=== PATIENT | female | born 1965 | race Caucasian/White ===

== ENCOUNTER → 2018-11-16 | Outpatient (CLI) | payer OTHER ==
--- NOTE | 2018-11-16 16:13 | CT ---
Procedure: CT LUNG SCREENING Exam Date: 11/16/2018. Ordering Provider: Fany López Clinical Indication: HISTORY OF TOBACCO USE . Current Smoker. 25 pack years. This patient meets eligibility criteria for low-dose CT lung cancer screening. Comparison: None. Technique: Using a multislice scanner, sequential helical axial imaging was obtained in the thorax, 2.5 mm thickness, 2.5 mm separation, from the level of the thoracic inlet through the lung bases without IV contrast. A low dose protocol was utilized for BMI less than 30: BMI: 15. CTDI: 1.76 mGy. 120. kVp. 45 mA. DLP 70.5 mGy centimeters. 2D sagittal and coronal reconstructed images, 6.0 mm thickness, were obtained. This exam was performed according to our departmental dose optimization program which includes use of automated exposure control, adjustment of the mA and/or kV according to patient size and/or use of iterative reconstruction technique. Nodule measurements under 10 mm are given as mean value of 3 axes diameters. FINDINGS: Lungs and large airways: Multiple dilated airspaces with diffuse centrilobular blebs and central and peripheral large bulla. Subpleural 3 mm solid nodule in the lateral right middle lobe anterior to the horizontal fissure on CT axial series 2 image 87. 3 mm calcified nodule right lower lobe on image 94. Pleural parenchymal scarring in the inferior right middle lobe and inferior lingula. Approximately 1 mm subpleural nodule in the lateral inferior lingula on image 77. Similar small subpleural nodules in the lateral base of the left lower lobe and also posterior to the superior segment of the left lower lobe Pleura and space: No effusion or pneumothorax. Mediastinum and mary: evaluation limited by low dose technique and lack of IV contrast. Lymph nodes are not enlarged. Heart and great vessels: Atherosclerotic calcification brachiocephalic vessels, aortic arch, and descending thoracic aorta. Ectasia of the ascending aorta. Coronary artery calcifications as well. Chest wall, lower neck, axillae: Evaluation also limited by same factors as described above. 1.8 x 1.2 cm low-density nodule in the superior pole of the right thyroid lobe. Upper abdomen: 3 cm cyst upper lateral pole left kidney. Atherosclerotic calcifications in the abdominal aorta. Possible cyst upper pole right kidney. Minimal peritoneal fat. Osseous structures: Evaluation limited by low dose MIP technique. Unremarkable. IMPRESSION: 1. Moderate emphysematous changes. Multiple bilateral small solid soft tissue nodules 3 mm or less in diameter. Calcified granulomas also noted [facility] Best Practice guidelines: Please see below for Lung RADS category and FOLLOW-UP.* *Lung RADS category CATEGORY 2S- Nodules with a very low likelihood (less than 1%) of becoming a clinically active cancer due to size or lack of growth. Nodules: Solid or part solid nodule(s) less than 6mm, new solid nodule less than 4mm. Ground glass nodule(s) less than 20mm or unchanged or slow growing ground glass nodule 20mm or greater. Cat 3 or 4 nodule unchanged for 3 or more months. FOLLOW-UP: Continue annual screening with a Low Dose Chest CT in 12 months for re-evaluation. 2. Modifier S: 1.8 cm low-density nodule in the upper pole of the right thyroid lobe. Follow-up ultrasound recommended. See below for [facility] Best Practice recommendations for follow-up imaging of incidental thyroid nodules (ITN's) 1.8 cm incidental thyroid nodule. Recommend thyroid US. Reference: J Am Saundra Radiol. 2015 Aug;12(2): 143-50 Electronically signed by: Rafat Lnatigua MD 11/16/2018 4:11 PM CDT
--- NOTE | 2018-11-16 16:57 | US ---
EXAM DESCRIPTION: Carotid Duplex: ULTRASOUND. CLINICAL HISTORY: 53 years Female CAROTID BRUIT COMPARISON: Low-dose CT lung cancer screening examination on this visit. TECHNIQUE: Transcutaneous scanning utilizing valencia-scale and Doppler modes to evaluate the bilateral carotid systems and vertebral arteries. Percentage of diameter of stenosis or no stenosis recorded will be based upon NASCET criteria. FINDINGS: Peak systolic/end diastolic (CM-Sec) CCA Right 88/26 Left 94/30. ICA Right proximal 79/27, distal 103/42. Left proximal 76/26, Distal 86/32. Vertebral Right 49/17 Left 54/23. ECA (PS Only) Right 47 left 46. ICA/CCA peak systolic ratio: Right 1.2 Left 0.9 ICA/CCA end diastolic ratio: Right 1.6 Left 1.1 Vertebral arteries: antegrade flow. Comments: Atherosclerotic calcifications bilaterally in the common carotid bulbs and proximal ICAs. A stenoses measure bilaterally are less than 25%. Diameter stenoses or similar. IMPRESSION: 1. Doppler evaluation of the bilateral carotid systems and vertebral arteries shows no hemodynamically significant stenoses. 2. No significant amount of plaque seen in the carotid arteries bilaterally. Bilateral vertebral arteries showed antegrade-cephalad flow. Electronically signed by: Rafat Lantigua MD 11/16/2018 4:55 PM CDT
== END ==
LOC: CT 10:05
PROVIDERS: ATTEND Nurse Practitioner Family
DX: Z87.891 Personal history of nicotine dependence (principal); J44.9 Chronic obstructive pulmonary disease, unspecified; R09.89 Other specified symptoms and signs involving the circulatory and respiratory systems; E04.1 Nontoxic single thyroid nodule; R91.8 Other nonspecific abnormal finding of lung field; Z92.241 Personal history of systemic steroid therapy

== ENCOUNTER → 2019-10-28 | Outpatient (CLI) | payer BC ==
--- NOTE | 2019-10-28 13:31 | CT ---
EXAM DESCRIPTION: Abdomen/Pelvis w/Contrast CLINICAL HISTORY: 54 years Female, DIARRHEA COMPARISON: None available. TECHNIQUE: Contiguous 3 mm axial images were obtained from the lung bases to the level of the proximal femora after the administration of intravenous and oral contrast. Sagittal and coronal reconstructions were reviewed. FINDINGS: THORAX: Severe emphysema. LIVER: The liver demonstrates normal size and density with no intrahepatic biliary ductal dilatation or focal masses. GALLBLADDER: Surgically absent. PANCREAS: Appears normal with no cystic or solid lesions. SPLEEN: Normal ADRENAL GLANDS: Normal with no nodules or masses. KIDNEYS: Both kidneys enhance symmetrically with no hydronephrosis or nephrolithiasis or perinephric fluid collections. Bilateral simple renal cysts are noted. No focal masses are identified. The visualized ureters appear grossly unremarkable. STOMACH: Not well distended limiting detailed evaluation. SMALL BOWEL: The small bowel loops demonstrate variable degrees of distention with no abnormal dilatation or other signs to suggest bowel obstruction. LARGE BOWEL: Mild constipation. Multiple diverticula are noted throughout the visualized colon. The appendix is not definitively visualized. No evidence of free intraperitoneal air or fluid. RETROPERITONEUM: The abdominal aorta is nonaneurysmal with moderate atherosclerosis. The inferior vena cava is normal in size and caliber. No abnormally enlarged retroperitoneal lymph nodes are identified. URINARY BLADDER: Not well distended limiting evaluation. Uterus is surgically absent. ADDITIONAL FINDINGS: None. BONES: Mild degenerative changes are identified in the visualized bones. Bilateral pars defects of L5 with grade 1 anterolisthesis of L5 over S1. IMPRESSION: 1. No acute intra-abdominal or intrapelvic process. 2. Mild constipation. 3. Colonic diverticulosis. This exam was performed according to our departmental dose-optimization program, which includes automated exposure control, adjustment of the mA and/or kV according to patient size and/or use of iterative reconstruction technique. Electronically signed by: Ada Doherty MD 10/28/2019 1:29 PM CDT
--- NOTE | 2019-10-28 13:33 | CT ---
EXAM DESCRIPTION: Chest w/Contrast CLINICAL HISTORY: 54 years Female, HEMOPTYSIS COMPARISON: CT lung screening study 11/16/2018. TECHNIQUE: CT images through the chest with IV contrast. Multiplanar reformations provided. This exam was performed according to our departmental dose-optimization program, which includes automated exposure control, adjustment of the mA and/or kV according to patient size and/or use of iterative reconstruction technique. CT CHEST FINDINGS: Heart and mediastinum: Normal heart size. No pericardial effusion. Unremarkable soft tissues. No pathologically enlarged mediastinal lymph nodes. Right hilar lymph node measures 9-11 mm short axis. No left hilar adenopathy. Mild atherosclerosis. Thyroid Gland: 1.5 cm heterogeneous hypodense right thyroid nodule. Lungs: Bilateral emphysematous changes. Wedge-shaped consolidation in the right middle lobe. No suspicious nodule or mass within the remaining right and left lungs. Airways: Normal. Pleura: Normal. Musculoskeletal and Soft Tissues: No acute fracture or aggressive appearing osseous lesion. Soft tissues unremarkable. Subphrenic Structures: Please refer to concurrent CT abdomen and pelvis study and report. IMPRESSION: 1. Worsening consolidation right middle lobe may represent pneumonia or aspiration, or relate to pulmonary infarction in the setting of pulmonary embolism. Please note this study is not tailored to evaluate for pulmonary edema seen. Recommend interval follow-up to resolution to exclude underlying malignancy. 2. Emphysema. 3. Likely reactive hilar adenopathy. 4. Please refer to concurrent CT abdomen and pelvis study and report. Electronically signed by: Manjit Yoo MD 10/28/2019 1:32 PM CDT
== END ==
LOC: LAB.O 12:16
PROVIDERS: ATTEND Nurse Practitioner Family
DX: R19.7 Diarrhea, unspecified (principal); K59.00 Constipation, unspecified; R91.8 Other nonspecific abnormal finding of lung field; J43.9 Emphysema, unspecified; K57.30 Diverticulosis of large intestine without perforation or abscess without bleeding; R59.9 Enlarged lymph nodes, unspecified; R04.2 Hemoptysis

== ENCOUNTER → 2019-12-17 | Outpatient (CLI) | payer BC ==
--- NOTE | 2019-12-17 10:20 | CT ---
EXAM DESCRIPTION: CTA Chest CLINICAL HISTORY: 54 years Female, PULMONARY EMBOLISM TECHNIQUE: Volumetric CT angiographic data acquisition of the thorax was obtained using the pulmonary embolism protocol after administration of IV contrast. Standard axial and coronal and CT angiographic MIP sagittal and coronal images are submitted. This exam was performed according to our departmental dose-optimization program, which includes automated exposure control, adjustment of the mA and/or kV according to patient size and/or use of iterative reconstruction technique. COMPARISON: October 28, 2019 FINDINGS: No axillary adenopathy. Atherosclerotic plaque in the thoracic aorta. No pericardial effusion. No evidence of acute process in the visualized upper abdomen. No mediastinal adenopathy. No pulmonary embolism. Similar emphysema. No pneumothorax. No pleural effusion. Improving right middle lobe consolidation. No new consolidative airspace disease. No suspicious pulmonary nodule identified. No acute or suspicious osseous abnormality. Scattered degenerative changes present. IMPRESSION: 1. No pulmonary embolism. 2. Improving right middle lobe pneumonia. Electronically signed by: Forest Pozo MD 12/17/2019 10:18 AM CDT
== END ==
LOC: CT 08:50
PROVIDERS: ATTEND Internal Medicine
DX: Z01.812 Encounter for preprocedural laboratory examination (principal); J18.1 Lobar pneumonia, unspecified organism; I25.9 Chronic ischemic heart disease, unspecified; J44.9 Chronic obstructive pulmonary disease, unspecified